=== PATIENT | female | born 1975 | race Caucasian/White ===

== ENCOUNTER 2020-09-10 04:46 | Day surgery (SDC) | payer OTHER ==
[2020-09-09 08:28] VITALS: BMI 26.6
[2020-09-10 08:39] VITALS: TEMP 97.8
[2020-09-10 09:39] VITALS: BP 130/54; PULSE 52
== END 2020-09-10 09:39 | disposition home or self-care (01) ==
LOC: JASU-ENDO 04:46
PROVIDERS: ATTEND Internal Medicine Gastroenterology
PROC: 0DB78ZX Excision of Stomach, Pylorus, Via Natural or Artificial Opening Endoscopic, Diagnostic (ICD-10-PCS; 2020-09-10)
PROC: 0DB38ZX Excision of Lower Esophagus, Via Natural or Artificial Opening Endoscopic, Diagnostic (ICD-10-PCS; principal; 2020-09-10 08:00)
DX: K29.50 Unspecified chronic gastritis without bleeding (principal); K21.00 Gastro-esophageal reflux disease with esophagitis, without bleeding; B96.81 Helicobacter pylori [H. pylori] as the cause of diseases classified elsewhere; K22.9 Disease of esophagus, unspecified; K30 Functional dyspepsia
CPT/HCPCS: 88305-TC; 88342-TC

== ENCOUNTER 2021-05-29 10:25 | Emergency (ER) | payer OTHER ==
[2021-05-29 11:13] VITALS: BP 119/77; PULSE 54; TEMP 98; BMI 26.5
[2021-05-29] MEDS ORDERED: LIDOCAINE 5% TOPICAL PATCH TP ONE (12:26)
[2021-05-29] MEDS ORDERED: diazePAM 5 MG TABLET PO ONE (12:26)
[2021-05-29] MEDS ORDERED: KETOROLAC TROMETHAMINE 30 MG/1 ML VIAL IM ONE (12:26)
[2021-05-29] MEDS ORDERED: LIDOCAINE 5% TOPICAL PATCH ONE (12:33)
[2021-05-29] MEDS ORDERED: KETOROLAC TROMETHAMINE 30 MG/1 ML VIAL ONE (12:33)
[2021-05-29] MEDS ORDERED: diazePAM 5 MG TABLET ONE (12:33)
[2021-05-29] MEDS ORDERED: LIDOCAINE PATCH REMOVAL MC SCH (22:00)
== END 2021-05-29 13:35 | disposition home or self-care (01) ==
LOC: JER 10:25
PROC: 3E0233Z Introduction of Anti-inflammatory into Muscle, Percutaneous Approach (ICD-10-PCS; principal; 2021-05-29)
DX: M54.41 Lumbago with sciatica, right side (principal)
CPT/HCPCS: 96372; 99284-25

== ENCOUNTER 2021-08-11 07:28 | Emergency (ER) | payer OTHER ==
[2021-08-11 07:47] VITALS: BP 115/61; PULSE 46; TEMP 97.7; BMI 26.5
[2021-08-11] MEDS ORDERED: ONDANSETRON 4 MG TABLET PO ONE (08:20)
[2021-08-11] MEDS ORDERED: ONDANSETRON *ODT* 4 MG TABLET ONE (08:28)
[2021-08-11 08:31] LABS: PH,URINE 7.5 (5.0-8.0); URINE APPEARANCE CLEAR; URINE BILIRUBIN NEGATIVE (NEGATIVE); URINE COLOR YELLOW; URINE GLUCOSE (UA) NEGATIVE (NEGATIVE); URINE KETONE NEGATIVE (NEGATIVE); URINE LEUK ESTERASE NEGATIVE (NEGATIVE); URINE NITRITE NEGATIVE (NEGATIVE); URINE PROTEIN NEGATIVE (NEGATIVE); URINE UROBILINOGEN 0.2 mg/dL (0.2-1.0)
[2021-08-11 08:39] LABS: HCG,QUALITATIVE URINE Negative
[2021-08-11] MEDS ORDERED: KETOROLAC TROMETHAMINE 30 MG/1 ML VIAL IM ONE (08:41)
[2021-08-11] MEDS ORDERED: valACYclovir HCL 1000 MG TABLET PO ONE (08:55)
[2021-08-11] MEDS ORDERED: KETOROLAC TROMETHAMINE 30 MG/1 ML VIAL ONE (08:55)
[2021-08-11] MEDS ORDERED: valACYclovir HCL 500 MG TABLET (FP) ONE (09:08)
== END 2021-08-11 09:20 | disposition home or self-care (01) ==
LOC: JER 07:28
PROC: 3E0233Z Introduction of Anti-inflammatory into Muscle, Percutaneous Approach (ICD-10-PCS; principal; 2021-08-11)
DX: R10.9 Unspecified abdominal pain (principal); M54.50 Low back pain, unspecified
CPT/HCPCS: 81003; 84703; 87086; 93005; 93010; 96372; 99284-25